=== PATIENT | male | born 1960 | race Caucasian/White ===

== ENCOUNTER 2024-06-04 06:21 | Day surgery (SDC) | payer BC, SELFPAY | END 2024-06-04 14:23 | disposition home or self-care (01) | LOC: GI 06:21 | PROVIDERS: ATTENDING PHYSICIAN Surgery | DX: Z12.11 Encounter for screening for malignant neoplasm of colon (principal); Z80.0 Family history of malignant neoplasm of digestive organs; K57.30 Diverticulosis of large intestine without perforation or abscess without bleeding | CPT/HCPCS: G0105 ==

== ENCOUNTER 2024-06-11 19:46 | Emergency (ER) | payer BC, SELFPAY ==
[2024-06-11 19:50] VITALS: BP 143/85
[2024-06-11 20:06] LABS: % Basophils 0.7 % (0-2); % Eosinophils 2.2 % (0-6); % Immature Granulocytes 0.3 % (0-0.5); % Lymphocytes 29.2 % (20.5-51.1); % Monocytes 6.4 % (1.7-9.3); % Neutrophils 61.2 % (42.2-75.2); Absolute Basophils 0.1 10^3/uL (0-0.2); Absolute Eosinophils 0.2 10^3/uL (0-0.7); Absolute Monocytes 0.7 10^3/uL (0.1-0.6); Absolute Neutrophils 6.3 10^3/uL (1.4-6.5); Hematocrit 39.7 % (39.0-52.0); Mean Corp Hgb Conc. 35.3 g/dL (33.0-37.0); Mean Corpuscular Hgb 30.9 pg (27.0-31.0); Mean Corpuscular Volume 87.6 fL (80.0-94.0); Nucleated Red Blood Cells % 0 % (-); Platelet Count 220 10^3/uL (130-400); Red Blood Cell Count 4.53 10^6/uL (4.70-6.10); Red Cell Dist. Width 12.6 % (11.5-14.5); White Blood Cell Count 10.3 10^3/uL (4.8-10.8)
[2024-06-11 20:26] LABS: ALT (SGPT) 15 U/L (0-50); AST (SGOT) 16 U/L (17-59); Albumin 4.2 g/dl (3.5-5.0); Alkaline Phosphatase 85 U/L (38-126); Blood Urea Nitrogen 13 mg/dl (9-20); Calcium 8.6 mg/dl (8.4-10.2); Carbon Dioxide 26 mmol/L (22-30); Chloride 103 mmol/L (98-107); Glucose 121 mg/dl (70-99); Potassium 3.7 mmol/L (3.5-5.1); Sodium 139 mmol/L (135-145); Total Bilirubin 0.5 mg/dl (0.2-1.3); Total Protein 6.8 g/dl (6.3-8.2); eGFR > 60.00
[2024-06-11 20:27] LABS: Lipase 82 U/L (23-300)
[2024-06-11 20:30] LABS: Troponin I 0.013 ng/ml
[2024-06-11 21:46] VITALS: BMI 34.5
[2024-06-11 21:47] VITALS: BP 132/62
[2024-06-11 22:00] VITALS: BP 135/68
--- NOTE | 2024-06-11 22:09 | ED.GENMED ---
History of Present Illness
General
Chief Complaint: Fainting Sensation
Source: patient
Time Seen by Provider: 06/11/24 21:49
History of Present Illness
History of Present Illness:
64-year-old male presents to the emergency room complaining of nausea, dizziness and feeling unsteady. Patient was laying on the ground playing with his granddaughter. When he attempted to get up he suddenly felt dizzy like either he was spinning
or the room was spinning. He felt extremely nauseous and unstable. He laid on his daughter's bed to try to recover. After being there for some time he got up to go to the bathroom but was unable to do so because of the dizziness. He tried to
reach the bathroom by crawling but then decided to go back to bed. 911 was called. By the time paramedics arrived the patient was feeling somewhat better. He was able to ambulate with the paramedics out of the house. He did have to hold onto the
railing. Currently he is feeling significantly better than when he arrived. He does have the sensation of movement when he sits up. He also noted a some discomfort in his left abdomen. This is mild.
Past History
Past History
ED Past Medical History: Negative IDDM or NIDDM
ED Past Surgical History: Negative Cardiac
Social History
Tobacco: Non-smoker
Alcohol: None
Drug: None
Personal:
Living: with family
Employment: Employed
Family History
Family History: Other (Noncontributory)
Phy Exam
Physical Exam
Physical Exam:
General: Awake, Alert, Oriented X3. No acute distress.
Vitals: unremarkable
Head: Atraumatic
Eyes: Pupils equal, EOMI. Horizontal nystagmus with left upward gaze.
Throat: Airway intact, no exudates
Neck: Trachea midline
Lungs: Clear and equal b/l
Heart: Regular rate, no murmurs
Abd: Soft, Nontender, No pulsatile mass
Neuro: Cranial nerves intact, muscle strength equal bilaterally, cerebellar exam normal
Skin: Warm, dry, no rash
Extremities: pulses equal b/l, no edema
Course
Orders/Labs/Results
Orders:
Orders
06/11/24 19:49
ECG [Electrocardiogram (*1)] Urgent
Reason for Study: Vertigo / Dizzy
EKG- Treatment ONCE
06/11/24 20:00
Complete Blood Count/With Diff Urgent
Comprehensive Metabolic Panel Urgent
Lipase Urgent
Troponin I Urgent
06/11/24 22:05
Meclizine [Antivert] 25 mg PO NOW STA
Ondansetron Injectable [Zofran] 4 mg IV NOW STA
06/11/24 22:14
Ondansetron Orally Disint [Zofran Odt (Orally Disintegrating)] 4 mg .ROUTE .STK-MED ONE
06/11/24 22:17
Ondansetron Orally Disint [Zofran Odt (Orally Disintegrating)] 4 mg PO NOW STA
Abnormal Lab Results
06/11/24
20:00
RBC 4.53 L 10^6/uL
(4.70-6.10)
Absolute Monos (auto) 0.7 H 10^3/uL
(0.1-0.6)
Glucose 121 H mg/dl
(70-99)
AST 16 L U/L
(17-59)
06/11/24 20:00
06/11/24 20:00
Vital Signs
Initial and Last Documented VS:
Initial Vital Signs
Temp Pulse Resp BP Pulse Ox
97.8 F 87 20 143/85 98
06/11/24 19:50 06/11/24 19:50 06/11/24 19:50 06/11/24 19:50 06/11/24 19:50
Last Documented Vital Signs
Temp Pulse Resp BP Pulse Ox
97.8 F 86 13 141/70 95
06/11/24 19:50 06/11/24 23:15 06/11/24 23:15 06/11/24 23:00 06/11/24 23:15
MDM/Problems Addressed
Differential Diagnosis Includes:
Benign positional vertigo, lab otitis, orthostatic hypotension, anemia
MDM/Problems Addressed:
Patient presents after an episode of dizziness, nausea which sounds very much like benign positional vertigo. Patient is feeling better here after meclizine. His labs are unremarkable. His neurologic exam is nonfocal. He does appear to have some
leftward nystagmus and his symptoms are exacerbated by movement of his head to the left. When he remains still his symptoms go away. Patient was able to ambulate at the time of discharge without any difficulty. Overall the presentation seems more
consistent with peripheral vertigo rather than central vertigo. Given him referral for physical therapy for vestibular therapy.
*Pulse Oximetry
Patient hypoxic: no
*EKG
Interpreted by ED Provider?: Yes
Heart Rate: 78
Rate: normal
Rhythm: sinus
[place]: normal axis
Interval: normal interval
Ischemia: no ischemia
*You[employer] Worker Interpretation
Rate: normal
Interpretation: normal
Rhythm: sinus
*Critical Care Note
Total Time (30-74mins, 75-104mins- exclusive of procedures): Not Applicable
ED Attending Note
-
Portions of this chart may have been created with voice recognition software.� Occasional wrong word or��sound alike� substitutions may have occurred due to the inherent limitations of voice recognition software.
Discharge Plan
Departure
Patient Disposition: Home (Routine Discharge)
Date of Disposition: 06/11/24
Time of Disposition: 23:38
Patient with high blood pressure during this ER visit?: Yes
Condition: Good
Discharge Problem:
Benign paroxysmal positional vertigo
Instructions: Vertigo - ED discharge instructions, BLOOD PRESSURE
Prescriptions:
No Action
levothyroxine 175 MCG tablet
175 mcg PO DAILY
citalopram 10 MG tablet
10 mg PO DAILY
ibuprofen 800 MG tablet
800 mg PO DAILYPRN PRN (Reason: back pain)
Bioleptin
1 tab PO DAILY@12
Referrals:
UNKNOWN - PT DOES,NOT KNOW [Family Provider] -
Activity Restrictions/Additional Instructions:
I believe you have vertigo from irritation of your inner ear. You can take an over the counter medication called meclizine for the dizziness symptoms if they return. We have physical therapist who specialized in this type of issue. I have given
you a prescription for this physical therapy and you can call and make an appointment. Return to the ER for any concerns or if you develop any other symptoms.
Interventions
Interventions:
*Risk Screen - Suicide Last Done: 06/11/24 23:50
*General Assessment Last Done: 06/11/24 21:46
*Neglect/Abuse Screening Last Done: 06/11/24 21:46
*ED- Fall Risk Assessment Last Done: 06/11/24 21:46
*ED COVID-19 Vaccine History Last Done: 06/11/24 21:46
*Nursing Disposition Last Done: 06/11/24 23:50
ED- Cardiac Assessment Last Done: 06/11/24 23:20
ED- Neurological Assessment Last Done: 06/11/24 23:20
Discharge Date and Time
Print Language: SAO TOMEAN
[2024-06-11] MEDS: ZOFRAN ODT (ORALLY DISINTEGRATING) 4 MG PO (22:17)
[2024-06-11] MEDS: ANTIVERT 25 MG PO (22:17)
[2024-06-11 23:00] VITALS: BP 141/70
== END 2024-06-11 23:50 | disposition home or self-care (01) ==
LOC: EMR 19:46
PROVIDERS: Emergency Medicine; EMERGENCY PHYSICIAN Emergency Medicine
DX: H81.10 Benign paroxysmal vertigo, unspecified ear (principal)
CPT/HCPCS: 99284; 80053; 83690; 84484; 85025; 93005

== ENCOUNTER 2024-06-25 08:36 | Outpatient (RCR) | payer BC, SELFPAY | END 2024-06-25 23:59 | disposition home or self-care (01) | LOC: RPT 08:36 | PROVIDERS: ATTENDING PHYSICIAN Family Medicine | DX: R42 Dizziness and giddiness (principal); Z73.6 Limitation of activities due to disability | CPT/HCPCS: 97112; 97161 ==